=== PATIENT | male | born 1960 | race Caucasian/White ===

== ENCOUNTER 2023-12-28 06:58 | Day surgery (SDC) | payer MEDICARE ==
[~2023-12-28] VITALS: Ht 180.3 cm; Wt 77.1 kg
[~2023-12-28 06:58] MED LIST: CIPROFLOXACN250 MG PO; DILAUDID 2MG2 MG/TA1 PO; FINASTERIDE5 MG PO; KEFLEX500 MG OR; MULTIVITAMIN PO; PERCOCET 5/325M1 TAB OR; PROSTATE SR PO; PROTONIX40 M2 OR; SILODOSIN4 MG PO; TAMSULOSIN0.4 MG PO; TRAZODONE100 MG PO
[2023-12-28] MEDS ORDERED: LACTATED RINGER'S 1,000 ML IV ONE (07:14)
[2023-12-28] MEDS ORDERED: FAMOTIDINE 10MG/ML 2ML SDV IV ONE (07:14)
[2023-12-28 09:33] VITALS: BP 119/67
[2023-12-28] MEDS ORDERED: PROPOFOL 200 MG/20 ML VIAL IV ONE (14:34)
[2023-12-28] MEDS ORDERED: LIDOCAINE HCL 2% 2ML SDV IV ONE (14:34)
== END 2023-12-28 09:15 | disposition home or self-care (01) ==
LOC: ENDO 06:58
PROVIDERS: ATTEND Internal Medicine Gastroenterology
PROC: 0DJD8ZZ Inspection of Lower Intestinal Tract, Via Natural or Artificial Opening Endoscopic (ICD-10-PCS; principal; 2023-12-28)
DX: Z12.11 Encounter for screening for malignant neoplasm of colon (principal); K57.30 Diverticulosis of large intestine without perforation or abscess without bleeding; K64.8 Other hemorrhoids; Z86.010 Personal history of colon polyps; Z90.49 Acquired absence of other specified parts of digestive tract